=== PATIENT | female | born 1965 | race Caucasian/White ===

== ENCOUNTER 2024-07-14 01:15 | Emergency (ER) | payer OTHER, SELFPAY ==
[2024-07-14 01:32] VITALS: BP 130/65; PULSE 107; RESP 18; TEMP 36.9; O2SAT 95; BMI 26.8
--- NOTE | 2024-07-14 01:38 | ED.GENADULT ---
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 She thinks that she must of had a breakout related to an [place] wool sweater that she was wearing. Has had rash started and then increasing pain at the back of her head/neck now 2 days. Has noted some lesions also on the left side of her head. Has not frankly seen blisters. 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 Has not been able to brush her hair due to the pain. She is wondering if I might be able to pooja something. No fever measured. Related Data Home Medications ?Medication ?Instructions ?Recorded ?Confirmed No Known Home Medications 07/14/24 07/14/24 Allergies Allergy/AdvReac Type Severity Reaction Status Date / Time sulfamethoxazole (From Allergy Rash Verified 07/14/24 01:32 Sept) trimethoprim (From Decra) Allergy Rash Verified 07/14/24 01:32 Review of Systems Status of ROS: Reports: 6 or more systems reviewed and unremarkable except as noted in History and below Exam Narrative: Exam Narrative: Pleasant. Calm. Transitions without difficulty but I think is trying to control degree of pain she is experiencing at this time. Skin is warm and dry. Above the occipital insertion on her head more left of midline is the largest swelling about 4 cm in maximal diameter. Mild calor and moderate erythema sub cm scab somewhat centrally. There might be some whitish spots of pointing. There is induration but no fluctuance. A few smaller similar lesions scattered at the left scalp. No cervical lymphadenopathy. No other lesions appreciated skin. Heart is in elevated rate. She is breathing easily. I did place ultrasound on the posterior lesion. I think there is a small collection of fluid Const: Documenting provider has reviewed patient's vital signs: yes Course Vital Signs Vital signs: Initial Vital Signs Temperature 98.5 F 07/14/24 01:32 Temperature Source Temporal Artery Scan 07/14/24 01:32 Pulse Rate 107 H 07/14/24 01:32 Respiratory Rate 18 07/14/24 01:32 Blood Pressure 130/65 07/14/24 01:32 Blood Pressure Mean 86 07/14/24 01:32 Blood Pressure Position Sitting 07/14/24 01:32 Pulse Oximetry 95 07/14/24 01:32 Oxygen Delivery Method Room Air 07/14/24 01:32 Vital Signs Temperature 98.5 F 07/14/24 01:32 Pulse Rate 107 H 07/14/24 01:32 Respiratory Rate 18 07/14/24 01:32 Blood Pressure 130/65 07/14/24 01:32 Pulse Oximetry 95 07/14/24 01:32 Oxygen Delivery Method Room Air 07/14/24 01:32 Temperature 98.5 F 07/14/24 01:32 Pulse Rate 107 H 07/14/24 01:32 Respiratory Rate 18 07/14/24 01:32 Blood Pressure 130/65 07/14/24 01:32 Pulse Oximetry 95 07/14/24 01:32 Oxygen Delivery Method Room Air 07/14/24 01:32 Medical Decision Making MDM Narrative Medical decision making narrative: I did discuss anesthetic injection before procedure but Ms. Hamilton deferred. Cleansing the area with Betadine then lanced with an 18 gauge. Did not see enough of fluid collection or fluctuance I think to do larger I and D. Not able to withdraw any fluid in this manner but with some pressure which definitely causes some pain, able to express pea sized amount of purulence. This is collected for wound culture Does have cellulitic change on the skin. The would benefit from antibiotics at this point. Would like to make sure there is some MRSA coverage. See patient discharge plan for further discussion I would soak affected areas if possible couple of times daily over the next few days in warm soapy or warm Epsom salt water. Watch for fever, marked increase in swelling, redness or pain. Prescribing doxycycline his antibiotic from [facility] as well as [place] as discussed. Can take up to 800 mg of ibuprofen or up to 1000 mg of acetaminophen per dose. Alternative to the ibuprofen might be up to 500 mg of naproxen 2 times daily. Keep in mind that each tablet of [place] contains 325 mg of acetaminophen. A wound culture will be pending here. Medical Records Medical records reviewed: Yes I reviewed the patient's medical records Discharge Plan Discharge Clinical Impression: Bacterial skin infection Patient Disposition: Home, Self-Care Condition: Stable Additional Instructions: I would soak affected areas if possible couple of times daily over the next few days in warm soapy or warm Epsom salt water. Watch for fever, marked increase in swelling, redness or pain. Prescribing doxycycline his antibiotic from [facility] as well as [place] as discussed. Can take up to 800 mg of ibuprofen or up to 1000 mg of acetaminophen per dose. Alternative to the ibuprofen might be up to 500 mg of naproxen 2 times daily. Keep in mind that each tablet of [place] contains 325 mg of acetaminophen. A wound culture will be pending here. Prescriptions: No Action No Known Home Medications Follow Up/Referrals: Provider,Not a Local [Primary Care Provider] - Stand Alone Forms: stickapps Info Instructions
--- OUTSIDE RECORDS SUMMARY | 2024-07-14 02:06 | XMS_ITS | Encounter Summary ---
Author Organization [facility] Address [address] [place] [address] Care Team Providers Care Tube Trailer Filler Name Role Phone Debbie Mckay MD Primary Care Provider [phone] Encounter Details Date Type Department Care Team (Late st Contact Info) Description 10/22/2011 Emergency Room External to [facility], Provider TOOTHACHE AND BILATERAL FLANK PAIN Social History Tobacco Use Types Packs/Day Years Used Date Smoking Tobacco: Former Cigarettes Q uit: 09/08/2002 Smokeless Tobacco: Never Alcohol Use Standard Drinks/Week Comments Yes 0 (1 standard drink = 0.6 oz pur e alcohol) occ Comments No Sex and Gender Information Value Date Recorded Sex Assigned at Not on file Legal Sex Female 6:46 AM CDT Gender Identity Not on file Sexual Orientation Not on file documented as of this encounter Progress Notes * [facility], Provider - 10/22/2011 12:00 AM CDT documented in this encounter Plan of Treatment Not on file documented as of this encounter Visit Diagnoses Not on filedocumented in this encounter Care Teams Tube Trailer Filler Relationship Specialty Start Date End Date Debbie Mckay MD [address] [place] [address] PCP - General Family Practice 05/11/22 documented as of this encounter
--- OUTSIDE RECORDS SUMMARY | 2024-07-14 02:07 | XMS_ITS | Encounter Summary ---
[facility] Address [address] [place] [address] Care Team Providers Care Planner Name Role Phone Debbie Mckay MD Primary Care Provider Encounter Details Date Type Department Care Team (Late st Contact Info) Description 02/07/2012 Consent for Procedure/Treatme nt [facility] Department INFORMED CONSENT RECORD Social History Tobacco Use Types Packs/Day Years Used Date Smoking Tobacco: Former Cigarettes 3 10 0 09/08/1992 - 09/08/2002 Smokeless Tobacco: Never Alcohol Use Standard Drinks/Week Comments Yes 0 (1 standard drink = 0.6 oz pur e alcohol) occ Comments No Sex and Gender Information Value Date Recorded Sex Assigned at Not on file Legal Sex Female 6:46 AM CDT Gender Identity Not on file Sexual Orientation Not on file Occupation Industry Job Start Date Job End Date Student Not on file Not on file Not on file documented as of this encounter Progress Notes * [facility], PROVIDER - 02/07/2012 12:00 AM CST RN documented in this encounter Plan of Treatment Not on file documented as of this encounter Visit Diagnoses Not on filedocumented in this encounter Care Teams Planner Relationship Specialty Start Date End Date Debbie Mckay MD [address] [place] [address] PCP - General Family Practice 05/11/22 documented as of this encounter
--- OUTSIDE RECORDS SUMMARY | 2024-07-14 02:07 | XMS_ITS | Clinical Summary ---
Author Organization [facility] [employer] [facility] Address [address] [address] Phone Care Team Providers Care Director Of Sports Performance Name Role Phone Unavailable Primary Care Provider Unavailabl e Allergies Active Allergy Reactions Criticality Noted Date Comments Meperidine Nausea and Vomiting 10/04/2018 Sulfa Drugs Nausea and Vomiting 10/04/2018 Medications aspirin 81 MG chewable tablet Chew and swallow 1 Tab one time a day. Take with food. 90 Tab 3 10/06/2018 5:39 PM CDT 10/07/2018 Active atorvaSTATin (LIPITOR) 80 MG tablet Take 1 Tab by mouth with supper. 90 Tab 3 10/06/2018 5:39 PM CDT 10/06/2018 Active clopidogrel (PLAVIX) 75 MG tablet Take 1 Tab by mouth one time a day. No missed doses. Take until 10/06/19. 90 Tab 3 10/06/2018 5:39 PM CDT 10/07/2018 Active metoprolol tartrate (LOPRESSOR) 25 MG tablet Take 1 Tab by mouth two times a day. 90 Tab 6 10/06/2018 5:39 PM CDT 10/06/2018 Active nitroglycerin (NITROSTAT) 0.[address] 1 Tab under the tongue every five minutes as needed for Chest pain. Do not crush; maximum of 3 doses in 15 minutes. 25 Tab 5 10/06/2018 5:39 PM CDT 10/06/2018 Active Active Problems Problem Noted Date Diagnosed Date NSTEMI (non-ST elevated myocardial infarction) 0 10/05/2018 Type 2 diabetes mellitus with diabetic neuropath y 10/05/2018 Surgical History Surgery Date Site/Laterality Comments CARDIAC CATHETERIZATION 10/05/2018 N/A Procedure: LHC, CORONARY ANGIOGRAPHY; Surgeon: Lynsey Taylor MD; Location: [facility] Medical devices from this surgery are in the Medical Devices section. CARDIAC CATHETERIZATION 10/05/2018 N/A Procedure: PCI - Coronary; Surgeon: Lynsey Taylor MD; Location: [facility] Medical devices from this surgery are in the Medical Devices section. Social History Tobacco Use Types Packs/Day Years Used Date Smoking Tobacco: Former Cigarettes Smokeless Tobacco: Never Comments:Quit 2002 Alcohol Use Standard Drinks/Week Comments Yes 0 (1 standard drink = 0.6 oz pur e alcohol) 4 per year AUDIT-C Answer Date Recorded Frequency of Alcohol Consumption Monthly or less 10/05/2018 Average Number of Drinks Not on file 019 Frequency of Binge Drinking Not on file 07/2018 Comments No Sex and Gender Information Value Date Recorded Sex Assigned at Female 10/05/2018 1:34 AM CDT Legal Sex Female 10:13 PM CDT Gender Identity Female 10/05/2018 1:34 AM CDT Sexual Orientation Not on file Obstetrics History Last Filed Vital Signs Vital Sign Reading Time Taken Comments Blood Pressure 127/81 10/06/2018 10:06 AM CDT Pulse 88 10/06/2018 10:06 AM CDT Temperature 37.1 C (98.7 F) 10/06/2018 8:17 AM CDT Respiratory Rate 16 10/06/2018 8:17 AM CDT Oxygen Saturation 98% 10/06/2018 10:06 AM CDT Inhaled Oxygen Concentration - - Weight 83.5 kg (184 lb) 10/06/2018 6:28 AM CDT Height 170.2 cm (5' 7) 10/05/2018 1:44 AM CDT Body Mass Index 28.82 10/05/2018 1:44 AM CDT Plan of Treatment Not on file Medical Devices Implanted Type Area Religious Assistant Device Identifier Shelf Expiration Date Model / Serial / Lot Stent Synergy Mr 2.50mm X 20mm [id number] - [id number] Implanted:Qty : 1 on 10/05/2018 by Lynsey Taylor MD at [facility] Stent NANI N/A: Heart [employer] [id number] 02/27/2020 [id number] / NA / [id number] [place] [place] [address] [facility] Address: [facility] [address] [place] [address] Advance Directives For more information, please contact: [phone] * Full Code (Latest Code Status on File) Date Activated Date Inactivated Comments 10/05/2018 11:23 AM 10/06/2018 9:42 PM * Full Code Date Activated Date Inactivated Comments 10/05/2018 1:27 AM 10/05/2018 11:23 AM
--- OUTSIDE RECORDS SUMMARY | 2024-07-14 02:07 | XMS_ITS | Encounter Summary ---
Author Organization [facility] Address [address] [place] [address] Care Team Providers Care Icer Hand Name Role Phone Debbie Mckay MD Primary Care Provider [phone] Encounter Details Date Type Department Care Team (Late st Contact Info) Description 12/23/2011 Scanned History External to Transferred Record, Provider [facility] Social History Tobacco Use Types Packs/Day Years [...] as of this encounter Progress Notes * Transferred Record, Provider - 12/23/2011 12:00 AM CDT [employer] documented in this encounter Plan of Treatment Not on file documented as of this encounter Visit Diagnoses Not on filedocumented in this encounter Care Teams Icer Hand Relationship Specialty Start Date End Date Debbie Mckay MD [address] [place] [address] PCP - General Family Practice 05/11/22 documented as of this encounter
--- OUTSIDE RECORDS SUMMARY | 2024-07-14 02:07 | XMS_ITS | Encounter Summary ---
Author Organization Counts include 234 beds at the [facility] Address [address], [place] [address] Care Team Providers Care Brewing Director Name Role Phone Debbie Mckay MD Primary Care Provider [phone] Encounter Details Date Type Department Care Team (Late st Contact Info) Description 10/29/2013 Emergency Room External to [facility], Provider CHEST PAIN SHORTNESS OF BREAST Social History Tobacco Use Types Packs/Day Years Used Date Smoking Tobacco: Former Cigarettes 3 10 0 09/08/1992 - 09/08/2002 Smokeless Tobacco: Never Alcohol Use Standard Drinks/Week Comments Yes 0 (1 standard drink = 0.6 oz pur e alcohol) a drink every couple months Comments No Sex and Gender Information Value Date Recorded Sex Assigned at Not on file Legal Sex Female 6:46 AM CDT Gender Identity Not on file Sexual Orientation Not on file Occupation Industry Job Start Date Job End Date Student Not on file Not on file Not on file documented as of this encounter Plan of Treatment Not on file documented as of this encounter Visit Diagnoses Not on filedocumented in this encounter Care Teams Brewing Director Relationship Specialty Start Date End Date Debbie Mckay MD [address] [place] [address] PCP - General Family Practice 05/11/22 documented as of this encounter
--- OUTSIDE RECORDS SUMMARY | 2024-07-14 02:07 | XMS_ITS | Encounter Summary ---
Author Organization [facility] Address [address] [address] Care Team Providers Care Mainframe Programmer Name Role Phone Debbie Mckay MD Primary Care Provider [phone] Encounter Details Date Type Department Care Team (Late st Contact Info) Description 01/12/2012 [facility] [address] [place] [address]. [place] [address] Henri Chan MD [address] [place] [address] PATIENT MEDICAL HISTORY Social History Tobacco Use Types Packs/Day Years [...] as of this encounter Progress Notes * Henri Chan MD - 01/12/2012 12:00 AM CDT documented in this encounter Plan of Treatment Not on file documented as of this encounter Visit Diagnoses Not on filedocumented in this encounter Care Teams Mainframe Programmer Relationship Specialty Start Date End Date Debbie Mckay MD [address] [place] [address] PCP - General Family Practice 05/11/22 documented as of this encounter
--- OUTSIDE RECORDS SUMMARY | 2024-07-14 02:07 | XMS_ITS | Encounter Summary ---
[facility] Address [address] [place] [address] Care Team Providers Care Lab Coordinator Name Role Phone Debbie Mckay MD Primary Care Provider [phone] Encounter Details Date Type Department Care Team (Late st Contact Info) Description 10/29/2013 Outside Hospital External to [facility], Provider CARDIO CONSUT Social History Tobacco Use Types Packs/Day Years [...] on filedocumented in this encounter Care Teams Lab Coordinator Relationship Specialty Start Date End Date Debbie Mckay MD [address] [place] [place] [address] PCP - General Family Practice 05/11/22 documented as of this encounter
--- OUTSIDE RECORDS SUMMARY | 2024-07-14 02:07 | XMS_ITS | Encounter Summary ---
Author Organization [facility] Address [address] [address] Care Team Providers Care Intake Nurse Name Role Phone Debbie Mkcay MD Primary Care Provider [phone] Encounter Details Date Type Department Care Team (Late st Contact Info) Description 12/31/2016 Correspondence [address] [place], [place] [id number] Pastor Zamarripa MD [address] [place], [place] [id number] MEDICATION ASSESSMENT Social History Tobacco Use Types Packs/Day Years [...] on filedocumented in this encounter Care Teams Intake Nurse Relationship Specialty Start Date End Date Debbie Mckay MD [address] [place], [place] [address] PCP - General Family Practice 05/11/22 documented as of this encounter
--- OUTSIDE RECORDS SUMMARY | 2024-07-14 02:07 | XMS_ITS | Encounter Summary ---
Author Organization [facility] Address [address] [place] [address] Care Team Providers Care Airways Operations Specialist Name Role Phone Debbie Mckay MD Primary Care Provider Encounter Details Date Type Department Care Team (Late st Contact Info) Description 11/29/2011 Emergency Room External to [facility], Provider BASK PAIN FLANK PAIN Social History Tobacco Use Types [...] as of this encounter Progress Notes * [facility], Provider - 11/29/2011 12:00 AM CDT documented in this encounter Plan of Treatment Not on file documented as of this encounter Visit Diagnoses Not on filedocumented in this encounter Care Teams Airways Operations Specialist Relationship Specialty Start Date End Date Debbei Mckay MD [address] [place] [address] PCP - General Family Practice 05/11/22 documented as of this encounter
--- OUTSIDE RECORDS SUMMARY | 2024-07-14 02:07 | XMS_ITS | Encounter Summary ---
Author Organization [facility] Address [address] [place] [address] Care Team Providers Care Braided Rug Maker Name Role Phone Debbie Mckay MD Primary Care Provider [phone] Encounter Details Date Type Department Care Team (Late st Contact Info) Description 10/30/2013 Outside Hospital External to [facility], Provider DISCHARGE SUMMARY Social History Tobacco Use Types Packs/Day Years [...] on filedocumented in this encounter Care Teams Braided Rug Maker Relationship Specialty Start Date End Date Debbie Mckay MD [address] [place] [address] PCP - General Family Practice 05/11/22 documented as of this encounter
--- OUTSIDE RECORDS SUMMARY | 2024-07-14 02:07 | XMS_ITS | Encounter Summary ---
Author Organization [facility] Address [address] [place] [address] Care Team Providers Care Green End Department Supervisor Name Role Phone Debbie Mckay MD Primary Care Provider [phone] Encounter Details Date Type Department Care Team (Late st Contact Info) Description 02/07/2014 Emergency Room External to [facility] ABDOMINAL PAIN Social History Tobacco Use Types Packs/Day [...] on filedocumented in this encounter Care Teams Green End Department Supervisor Relationship Specialty Start Date End Date Debbie Mckay MD [address] [place] [address] PCP - General Family Practice 05/11/22 documented as of this encounter
--- OUTSIDE RECORDS SUMMARY | 2024-07-14 02:07 | XMS_ITS | Encounter Summary ---
Author Organization [facility] Address [address], [place] [address] Care Team Providers Care Commercial Energy Rater Name Role Phone Debbie Mckay MD Primary Care Provider [phone] Encounter Details Date Type Department Care Team (Late st Contact Info) Description 02/02/2012 Consent for Procedure/Treatme nt [facility] [address] [place] [address]. [place] [address] Henri Chan MD [address] [place] [address] CONSENT FOR PROCEDURE Social History Tobacco Use Types Packs/Day Years [...] Progress Notes * Henri Chan MD - 02/02/2012 12:00 AM CDT NA ATTENDANT documented in this encounter Plan of Treatment Not on file documented as of this encounter Visit Diagnoses Not on filedocumented in this encounter Care Teams Commercial Energy Rater Relationship Specialty Start Date End Date Debbie Mckay MD [address] [place] [address] PCP - General Family Practice 05/11/22 documented as of this encounter
--- OUTSIDE RECORDS SUMMARY | 2024-07-14 02:07 | XMS_ITS | Encounter Summary ---
Author Organization [facility] Address [address] [place] [address] Care Team Providers Care Human Resources Assistant Name Role Phone Debbie Mckay MD Primary Care Provider [phone] Encounter Details Date Type Department Care Team (Late st Contact Info) Description 01/09/2014 Consent for Procedure/Treatme nt [facility] Department INFORMED CONSENT RECORD Social History Tobacco [...] on filedocumented in this encounter Care Teams Human Resources Assistant Relationship Specialty Start Date End Date Debbie Mckya MD [address] [place] [address] PCP - General Family Practice 05/11/22 documented as of this encounter
--- OUTSIDE RECORDS SUMMARY | 2024-07-14 02:07 | XMS_ITS | Clinical Summary ---
Author Organization [facility] Address [address] [address] Care Team Providers Care Final Tester Name Role Phone Debbie Mckay MD Primary Care Provider [phone] Source Comments You are receiving this document as you are listed as the primary care provider,follow-up provider, or the patient has been referred to you for consultation.This is in compliance with the Medicare and[facility] EHR Incentive Program,which states Providers who transition their patient to another setting of careor provider of care or refers their patient to another provider of care shouldprovide summary care record for each transition of care or referral. [facility] Allergies Active Allergy Reactions Criticality Noted Date Comments Dulaglutide Dizziness 05/18/202205/18: Patient reports significant dizziness and inability to drive while taking Hydrocodone-Acetaminop hen Other, see comments 04/11/2018 Severe fatigue- I will never take Vicodin again in my life - 05/27/21 Hydromorphone Gastrointestinal 11/02/2013 Latex Rash Low 05/26/2021 Blisters Liraglutide Other, see comments 08/03/2013 Difficulty breathing Meperidine Nausea And Vomiting 10/04/2018 Propylene Glycol Other, see comments High 04/11/2020 Made her eyes bleed- Vascular damage in eyes Sulfa Antibiotics Gastrointestinal 06/08/2011 Tramadol Other, see comments 12/10/2011 vomit Medications * This document contains information received from the source organization and may not represent a complete record from that organization. TRUETEST TEST strips TEST TWO TIMES A DAY OR USE DIRECTED. 100 Each 95 013 Active aspirin 81 MG chewable tablet Chew and swallow 1 Tablet (81 mg) by mouth daily. Active omega-3 fatty acids (FISH OIL) 1000 MG capsule Take 2 Capsules (2,000 mg) by mouth daily. Active metFORMIN (GLUCOPHAGE) 1000 MG tabletIndicatio ns:Type 2 diabetes mellitus with other specified complication, with long-term current use of insulin (HRC) Takes 2 tablets a day 180 Tablet 1 023 Active insulin pen needle (B-D UF III MINI PEN NEEDLES) 31G X 5 MMIndications:T ype 2 diabetes mellitus with other specified complication, with long-term current use of insulin (HRC) daily. 100 Each 11 023 Active Additional Information Patient not taking.Reported on 07/27/2022 insulin glargine (LANTUS SOLOSTAR) 100 UNIT/ML penIndications: Type 2 diabetes mellitus with other specified complication, with long-term current use of insulin (HRC) Inject 6 Units subcutaneously two times a day. 10 mL 3 023 Active Additional Information Patient not taking.Reported on 07/27/2022 lisinopril (ZESTRIL) 5 MG tabletIndicatio ns:Essential hypertension (HRC) Take 1 Tablet (5 mg) by mouth daily. 90 Tablet 3 023 Active lisinopril (ZESTRIL) 5 MG tablet Take 1 Tablet (5 mg) by mouth. Active MOUNJARO 15 MG/0.5ML injection penIndications: Type 2 diabetes mellitus with diabetic neuropathy, with long-term current use of insulin (HRC) inject 15mg under the skin once a week 2 mL 024 Active tirzepatide (MOUNJARO) 2.5 MG/0.5ML injection penIndications: Type 2 diabetes mellitus without complication, without long-term current use of insulin (HRC) Inject 2.5 mg subcutaneously once a week. 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 Need to check if patient had follow up testing/Pap. Immunizations Immunization Administration Dates Next Due Flu Vac (3+ yrs) 01/10/2014, 2(Deferred: Patient Refused) HepB Adult (Engerix-B, 20+ y rs, 3 dose series) 10/02/1990,05/05/1990,04/04/1990 Influenza IIV4 (Quadrivalent ) 0.5mL (89764) 01/10/2014 PPSV23 (Pneumovax) 02/08/2012,03/30/2011 TB Test - Historical 02/22/2011 Tdap 02/15/2011 Family History Medical History Relation Name Comments Alcohol/Drug Abuse Father Cataract Father Depression Father Diabetes, Type II Father Hyperlipidemia Father Hypertension Father Osteoporosis Father Alcohol/Drug Abuse Mother Bipolar Disorder Mother Cancer, Ovary Mother diagnosed in h er 50s Cataract Mother Depression Mother Schizophrenia Mother Down Syndrome Brother Heart Attack Brother Hypertension Brother Anesthesia Reaction Maternal Grandmother Cancer, Ovary Maternal Grandmother Macular Degeneration Paternal Uncle Cancer, Other Sister 2 Uterine Relation Name Status Comments Father (Age 75) strokes, h eart attack, alcoholism Mother (Age 68) alcoholism , uterine/ovarian cancer Brother 7 brothers Maternal Grandmother Paternal Uncle Sister 1 2 sister Sister 2 Social History Tobacco Use Types Packs/Day Years Used Date Smoking Tobacco: Former Cigarettes 3 10 0 09/08/1992 - 09/08/2002 Passive Smoke Exposure: Past Smokeless Tobacco: Never Tobacco Cessation:Counseling Given: Not Answered Alcohol Use Standard Drinks/Week Comments Yes 0 (1 standard drink = 0.6 oz pur e alcohol) a drink every couple months PHQ-2 Answer Date Recorded PHQ-2 Score 0 05/07/2022 Comments No Sex and Gender Information Value Date Recorded Sex Assigned at Not on file Legal Sex Female 6:46 AM CDT Gender Identity Not on file Sexual Orientation Not on file Occupation Industry Job Start Date Job End Date Student Not on file Not on file Not on file Last Filed Vital Signs Vital Sign Reading Time Taken Comments Blood Pressure 139/78 06/18/2022 8:45 AM CDT Pulse 75 06/18/2022 8:45 AM CDT Temperature 36.6 C (97.9 F) 04/16/2022 9:33 AM INSURANCE ADJUSTER Respiratory Rate 20 04/16/2022 9:33 AM INSURANCE ADJUSTER Oxygen Saturation 98% 04/16/2022 9:33 AM INSURANCE ADJUSTER Inhaled Oxygen Concentration - - Weight 83 kg (183 lb) 05/07/2022 10:13 AM INSURANCE ADJUSTER Height 168.3 cm (5' 6.25) 06/18/2022 8:45 AM CD T Body Mass Index 29.31 05/07/2022 10:13 AM INSURANCE ADJUSTER Plan of Treatment Health Maintenance Due Date Last Done Comments Mammogram 1964 Pneumococcal 50+ Yrs (2 of 2 - PCV) 02/07/2013 02/08/2012, 03/30/2011 Zoster/Shingles (1 of 2) 2014 Diabetes: Eye Exam 11/12/2014 11/12/2013, 0 11/12/2013, 11/12/2013, Additional history exists DTaP/Tdap/Td (2 - Tdap) 02/15/2021 02/15/2011 Adult Preventive Visit 05/07/2023 05/07/2022, 2011 Diabetes: Creatinine 05/07/2023 05/07/2022, 01/10/2014, 01/09/2014, Additional history exists Diabetes: Foot Exam 05/07/2023 05/07/2022, 05/07/2022, 11/02/2013, Additional history exists Diabetes: Urine Microalbumin 07/28/2023, 05/07/2022, 05/18/2013, Additional history exists Diabetes: HGBA1C 08/11/2023 02/10/2023, , 05/07/2022, Additional history exists COVID-19 Vaccine ( season) 2023 Influenza (#1) 2023 01/10/2014, 01/10/2014 Colonoscopy 04/04/2024 04/04/2014, 10/2011, 12/10/2011 Diabetes: Lipid Panel 05/07/2027 05/07/2022 , 04/29/2014, 05/18/2013, Additional history exists HepB Completed 10/02/1990, 04/1990, 04/04/1990 HIV Screening (Preventive Services) Completed 10/23/2011 Hep C Screening (Preventive Services) Completed 05/07/2022 HepA Aged Out No longer eligi ble based on patient's age to complete this topic Hib Aged Out No longer eligi ble based on patient's age to complete this topic IPV (Polio) Aged Out No longer eligi ble based on patient's age to complete this topic MCV4 Aged Out No longer eligi ble based on patient's age to complete this topic Meningococcal B Aged Out No longer el igible based on patient's age to complete this topic Medical Devices Implanted Type Area Public Services Librarian Device Identifier Shelf Expiration Date Model / Serial / Lot Stent [id number] Polaris Ultra - [id number] Implanted:Qty: 1 on 02/07/2012 by Henri Chan MD at [facility] DEVICE Left: [employer] [place] [employer]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 02/07/2012 [id number] / / [id number] Procedures Procedure Name Priority Date/Time Associated Diagnosis Comments HGB A1C Routine 02/10/2023 10:15 AM INSURANCE ADJUSTER Diabetic peripheral neuropathy (HRC) ALBUMIN/CREAT RATIO Routine 07/27/2022 1 0:52 AM CDT Type 2 diabetes mellitus with diabetic neuropathy, with long-term current use of insulin (HRC) HEPATITIS C ANTIBODY, WITH REFLEX Routine 05/07/2022 11:26 AM INSURANCE ADJUSTER Need for hepatitis C screening test BASIC METABOLIC PANEL Routine 05/07/2022 11:26 AM INSURANCE ADJUSTER Type 2 diabetes mellitus with other specified complication, with long-term current use of insulin (HRC) LIPID PANEL & DIRECT LDL (IF NEEDED) Routine 05/07/2022 11:26 AM INSURANCE ADJUSTER Type 2 diabetes mellitus with other specified complication, with long-term current use of insulin (HRC) COLONOSCOPY Routine 12/10/2011 9:15 AM CDT Left lower quadrant pain HIV, POINT OF CARE STAT 10/23/2011 2: 16 AM CDT from Last 3 Months or Most Recently Relevant to Health Maintenance Results * (ABNORMAL) Hgb A1C (02/10/2023 10:15 AM INSURANCE ADJUSTER) Hemoglobin A1C (Rapid) 6.0(H) <=5.6 % 02/10/2023 10:39 AM [facility] Estimated Average Glucose (Calc) 126 < 117 mg/dL 02/10/2023 10:39 AM [facility] Comment:Estimated average gl ucose (eAG) converts A1c into glucose units (mg/dL) and estimates average glucose over the past approximately 3 months. The eAG reference interval (<117 mg/dL) corresponds to an A1c of <5.7%. Blood Venipuncture / Unknown 02/10/2023 10:15 AM INSURANCE ADJUSTER 02/10/2023 10:15 AM [facility] - 02/10/2023 10:39 AM INSURANCE ADJUSTER For patients not previously diagnosed with diabetes: 5.7-6.4%: Increased risk for diabetes 6.5% and greater: Diagnostic for diabetes For patients diagnosed with diabetes: <8.0%: Goal of therapy for ages 18-75 Clinicians may recommend a higher or lower goal for specific individuals. The test method used for this Hemoglobin A1c result can experience interference from elevated hemoglobin and other hemoglobin variants. In patients with results that do not correlate clinically, contact the lab for further direction. Debbie Mckay MD LAB_1 Final Result Performing Organization Address [facility]/ZIP Co de Phone Number [facility] [address] [place] [address], [facility] [place] [phone] * (ABNORMAL) Albumin/Creatinine Ratio,Random Urine (07/27/2022 10:52 AM CDT) Albumin/Creati nine Ratio, Urine, Random 238(H) <30 mg/g 07/27/2022 3:57 PM CDT [facility] Albumin, Urine, Random 240.5 mg/L 07/27/2022 3:57 PM CDT [facility] Creatinine, Urine, Random 101 >20 mg/dL mg/dL 07/27/2022 3:57 PM CDT [facility] Urine Non-blood Collection / Unknown 07/27/2022 10:52 AM CDT 07/27/2022 10:52 AM CDT Debbie Mckay MD LAB_1 Final Result Performing Organization Address [facility] de Phone Number [facility] [address] * (ABNORMAL) Lipid Panel and Direct LDL(If Needed) (05/07/2022 11:26 AM INSURANCE ADJUSTER) Cholesterol 213(H) 0 - 199 mg/dL 05/07/2022 6:54 PM INSURANCE ADJUSTER [facility] Triglyceride 313(H) <=149 mg/dL 05/07/2022 6:54 PM INSURANCE ADJUSTER [facility] HDL Cholesterol 30(L) >=40 mg/dL 05/07/2022 6:54 PM INSURANCE ADJUSTER [facility] LDL, Calculated 120 <130 mg/dL 05/07/2022 6:54 PM INSURANCE ADJUSTER [facility] Non HDL Chol, Calculated 183(H) <=159 mg/dL 05/07/2022 6:54 PM INSURANCE ADJUSTER [facility] Cholesterol/HDL Ratio 7.1 05/07/2022 6:54 PM INSURANCE ADJUSTER [facility] Hours Fasting Unknown 05/07/2022 6:54 PM [facility] (PN) Blood Venipuncture / Unknown 05/07/2022 11:26 AM INSURANCE ADJUSTER 05/07/2022 11:26 AM INSURANCE ADJUSTER us Debbie Mckay MD LAB_1 Final Result [facility] [address] [place] [address], [facility] (PN) [address] [place] [address], [facility] [place] [phone] * (ABNORMAL) Basic Metabolic Panel (05/07/2022 11:26 AM INSURANCE ADJUSTER) Sodium 134(L) 136 - 145 mmol/L 05/07/2022 6:54 PM INSURANCE ADJUSTER [facility] Potassium 4.7 3.5 - 5.1 mmol/L 05/07/2022 6:54 PM INSURANCE ADJUSTER [facility] Chloride 107 98 - 109 mmol/L 05/07/2022 6:54 PM INSURANCE ADJUSTER [facility] CO2 21 20 - 29 mmol/L 05/07/2022 6:54 PM INSURANCE ADJUSTER [facility] Anion Gap 6(L) 7 - 16 mmol/L 05/07/2022 6:54 PM INSURANCE ADJUSTER [facility] Calcium 9.5 8.4 - 10.4 mg/dL 05/07/2022 6:54 PM [facility] BUN 44(H) 7 - 26 mg/dL 05/07/2022 6:54 PM INSURANCE ADJUSTER [facility] Creatinine 0.95 0.55 - 1.02 mg/dL 05/07/2022 6:54 PM INSURANCE ADJUSTER [facility] Glucose 287(H) 70 - 100 mg/dL 05/07/2022 6:54 PM [facility] Comment:The given reference range is for the fasting state. Non-fasting reference range for glucose is 70 - 180 mg/dL. Hours Fasting Unknown 05/07/2022 6:54 PM INSURANCE ADJUSTER [facility] (PN) GFR, Estimated >60 >60 mL/min/1.7 3m2 05/07/2022 6:54 PM INSURANCE ADJUSTER [facility] Blood Venipuncture / Unknown 05/07/2022 11:26 AM INSURANCE ADJUSTER 05/07/2022 11:26 AM INSURANCE ADJUSTER Debbie Mckay MD LAB_1 Final Result Performing Organization Address [facility] de Phone Number [facility] [address] [place], [place] [phone] [place] [address] LABORATORY (PN) [address] [place] [address] [phone] * Hepatitis C Antibody, with Reflex (05/07/2022 11:26 AM INSURANCE ADJUSTER) Hepatitis C Antibody Negative (Non Reactive) Negative (Non Reactive) 05/07/2022 7:27 PM INSURANCE ADJUSTER [facility] Comment:Antibodies to HCV no t detected. Does not exclude the possiblity of exposure to HCV. Blood Venipuncture / Unknown 05/07/2022 11:26 AM INSURANCE ADJUSTER 05/07/2022 11:26 AM INSURANCE ADJUSTER Debbie Mckay MD LAB_1 Final Result Performing Organization Address [facility] Phone Number [facility] [address] [place], [place] [address] * COLONOSCOPY [[id number]] (12/10/2011 9:15 AM CDT) 12/10/2011 9:15 AM CDT Narrative [facility] ([facility]) - 12/10/2011 10:21 AM CDT Indications: Abdominal pain in the left lower quadrant, This is the patient's first colonoscopy Providers: Vini Baker MD, Kristen Nelson RN Referring MD: Pastor Zamarripa MD Medicines: Fentanyl IV 100 mcgs, Versed IV 2 mgs Complications: No immediate complications. Procedure: Pre-Anesthesia Assessment: - See concurrent note for pre-anesthesia assessment. After I obtained informed consent, the scope was passed under direct vision. Prior to sedation, patient identity and procedure was reverified. Throughout the procedure, the patient's blood pressure, pulse, and oxygen saturations were monitored continuously. The PCF H-180AL colonoscope #25 was introduced through the anus and advanced to the terminal ileum, with identification of the appendiceal orifice and IC valve. The colonoscopy was performed without difficulty. The patient tolerated the procedure well. The quality of the bowel preparation was poor and poor due to opaque liquid and solid debris not improving proximally. Repetitive irrigation and aspiration was utilized to achieve a satisfactory exam. Findings: The perianal and digital rectal examinations were normal. A sessile polyp was found at 52 cm proximal to the anus. The polyp was 3 mm in size. The polyp was removed with a hot snare. Resection and retrieval were complete. Estimated blood loss was minimal. Verification of patient identification for the specimen was done by the physician and nurse using the patient's name and date. The exam was otherwise without abnormality on direct and retroflexion views. Impression: - Preparation of the colon was poor. - One 3 mm polyp at 52 cm proximal to the anus. Resected and retrieved. - The examination was otherwise normal on direct and retroflexion views. No source of explanation for pain in the colon. Recommendation: - Findings, plan, and postprocedure precautions discussed with patient. Please call for results if no word in one week. Procedure Code(s): --- Professional --- 03680 Diagnosis Code(s): --- Professional --- 211.3 789.04 CPT (R) 2011 [employer]. All Rights Reserved. The codes documented in this report are preliminary and upon radiology technologist review may be revised to meet current compliance requirements. Attending Participation: MD Vini Valadez MD 12/10/2011 10:20 AM Number of Addenda: 0 Note Initiated On: 12/10/2011 9:15 AM Procedure Note Vini Baker MD - 12/10/2011 Indications: Abdominal pain in the left lower quadrant, This is the patient's first colonoscopy Providers: Vini Baker MD, Kristen Nelson, MARLY Referring MD: Pastor Zamarripa MD Medicines: Fentanyl IV 100 mcgs, Versed IV 2 mgs Complications: No immediate complications. Procedure: Pre-Anesthesia Assessment: - See concurrent note for pre-anesthesiaassessment. After I obtained informed consent, the scope was passed under direct vision. Prior to sedation, patient identity and procedure was reverified. Throughout the procedure, the patient's blood pressure, pulse, and oxygen saturations were monitored continuously. The PCF H-180AL colonoscope #25 was introduced through the anus and advanced to the terminal ileum, with identification of the appendiceal orifice and IC valve. The colonoscopy was performed without difficulty. The patient tolerated the procedure well. The quality of the bowel preparation was poor and poor due to opaque liquid and solid debris not improving proximally. Repetitive irrigation and aspiration was utilized to achieve a satisfactory exam. Findings: The perianal and digital rectal examinations were normal. A sessile polyp was found at 52 cm proximal to the anus. The polyp was 3 mm in size. The polyp was removed with a hot snare. Resection and retrieval were complete. Estimated blood loss was minimal. Verification of patient identification for the specimen was done by the physician and nurse using the patient's name and date. The exam was otherwise without abnormality on direct and retroflexion views. Impression: - Preparation of the colon was poor. - One 3 mm polyp at 52 cm proximal to the anus. Resected and retrieved. - The examination was otherwise normal on direct and retroflexion views. No source of explanation for pain in the colon. Recommendation: - Findings, plan, and postprocedure precautions discussed with patient. Please call for results if no word in one week. Procedure Code(s): --- Professional --- 72616 Diagnosis Code(s): --- Professional --- 211.3 789.04 CPT (R) 2011 [employer]. All Rights Reserved. The codes documented in this report are preliminary and upon radiology technologist review may be revised to meet current compliance requirements. Attending Participation: MD Vini Valadez MD 12/10/2011 10:20 AM Number of Addenda: 0 Note Initiated On: 12/10/2011 9:15 AM us Vini Baker MD DIGESTIVE CARE Final Result [facility] ([facility]) [place], [place] * HIV, POINT OF CARE (10/23/2011 2:16 AM CDT) Rapid HIV Negative (Non Reactive) [facility] 10/23/2011 2:16 AM CDT 10/23/2011 7:26 AM CDT us Elin Grissom MD LAB_1 Final Res ult [address] [address] from Last 3 Months or Most Recently Relevant to Health Maintenance Insurance CARE MNCARE Advance Directives * Full Code (Latest Code Status on File) Date Activated Date Inactivated Comments 01/09/2014 7:20 PM 01/10/2014 2:52 PM * Full Code Date Activated Date Inactivated Comments 01/09/2014 12:33 PM 01/09/2014 7:19 PM * Full Code Date Activated Date Inactivated Comments 02/07/2012 5:24 AM 02/08/2012 1:05 PM Care Teams Final Tester Relationship Specialty Start Date End Date Debbie Mckay MD [address] [place] [address] PCP - General Family Practice 05/11/22
--- OUTSIDE RECORDS SUMMARY | 2024-07-14 02:07 | XMS_ITS | Clinical Summary ---
Author Organization [facility] Address [address] [place] [id number] Care Team Providers Care Magnetic Tape Typewriter Operator Name Role Phone Pcp, No Primary Care Provider Unavailabl e Allergies Active Allergy Reactions Criticality Noted Date Comments Hydromorphone Nausea And Vomiting 10/29/2013 (Ok with morphine) Latex Rash Low 05/26/2021 Blisters Meperidine Nausea And Vomiting 10/04/2018 Phenol *Unknown High 04/11/2020 Propylene Glycol Other - Describe In Comment Field High 04/11/2020 Made her eyes bleed- Vascular damage in eyes Sulfa (Sulfonamide Antibiotics) Vomiting 02/07/2011 Sulfamethoxazole-Trimeth oprim Nausea And Vomiting 05/20/2009 Tramadol Nausea And Vomiting 12/10/2011 vomit Hydrocodone-Acetaminophe n Other - Describe In Comment Field 04/11/2018 Severe fatigue- I will never take Vicodin again in my life - 05/27/21 Liraglutide Anaphylaxis,Diarrhea High 04/11/2020 Made me stop breathing Medications blood-glucose meterIndications:Ty pe 2 diabetes mellitus with both eyes affected by 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 E11.65 NIDDM type II, uncontrolled - Test 2 times/day. Reason: High A1C 1 Each 11/25/19 21 Active lancetsIndications: Type 2 diabetes mellitus with both eyes affected by moderate nonproliferative retinopathy without macular edema, with long-term current use of insulin (HC) Test 2 times per day. 200 Each 3 11/25/19 21 Active nitroglycerin (NITROSTAT) 0.4 mg sublingual tabletIndications:H istory of PR (myocardial infarction) Place 1 Tablet (0.4 mg) under the tongue each time if needed for Chest Pain. 10 Tablet 3 05/21/19 22 Active lisinopriL (PRINIVIL; ZESTRIL) 5 mg tablet Take 5 mg by mouth once daily. Active MILK THISTLE ORAL Take 1 Tablet by mouth once daily. Active Patients Unique Medication From Home Brand: [place]- 1 tablet daily (helps to clear her throat) Active aspirin chewable 81 mg chewable tablet Chew 1 Tablet (81 mg) by mouth every morning. 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 200 Each 3 06/03/19 22 Active atorvastatin (LIPITOR) 80 mg tabletIndications:M ixed hyperlipidemia Take 1 Tablet (80 mg) by mouth once daily with evening meal. 90 tablet. 3 08/21/19 22 Active metoprolol tartrate (LOPRESSOR) 25 mg tabletIndications:A rteriosclerotic heart disease Take 1 Tablet (25 mg) by mouth once daily. 90 Tablet 1 08/21/19 22 Active insulin glargine, U-100, (LANTUS) 100 unit/mL injectionIndication s:Type 2 diabetes mellitus with both eyes affected by moderate nonproliferative retinopathy without macular edema, with long-term current use of insulin (HC) Inject 20 units at breakfast and 20 units at bedtime daily. 30 mL 3 08/21/19 22 Active meclizine (ANTIVERT) 25 mg tabletIndications:N ear syncope,Episodic lightheadedness Take 1 Tablet (25 mg) by mouth every 6 hours if needed for Vertigo. 30 Tablet 09/05/19 22 Active arm brace (Wrist Brace) miscIndications:Par esthesia of hand, bilateral As directed 1 Each. 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 E11.65 NIDDM type II, uncontrolled - Test 2 times/day. 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, with long-term current use of insulin (HC) TAKE 4 TABLETS BY MOUTH ONCE DAILY WITH EVENING MEAL 360 Tablet 02/10/20 22 Active Active Problems Problem Noted Date Diagnosed Date Cataract of both eyes 07/03/2021 Diabetic retinopathy associa gumaro with type 2 diabetes mellitus 07/03/2021 Glaucoma 07/03/2021 History of arthroscopy of left knee 07/03/2021 History of renal calculi 07/03/2021 Obstructive sleep apnea arian gumaro with continuous positive airway pressure (CPAP) 07/03/2021 COVID-19 with comorbid diabetes mellitus 021 Migraine 05/14/2019 Atherosclerosis of coronary artery 05/14/2019 History of coronary artery stent placement 10/02 History of non-ST elevation myocardial infarctio n (NSTEMI) 10/02/2018 Post concussion syndrome 04/11/2018 History of hysterectomy 01/09/2014 Macrodactylia of toes 01/06/2012 Overview (07/03/2021): elongated metatarsal Pes planus 01/06/2012 Diabetic peripheral neuropathy 07/12/2011 Hyperlipidemia with target LDL less than 100 Overview (07/03/2021): ICD 10 Colloid thyroid nodule 04/09/2011 Overview (07/03/2021): FNA 04/09/2011 Benign Colloid Nodule Abnormal finding on Pap smear, ASCUS 02/19/2011 Overview (07/03/2021): colpo 03/10/11, repeat pap in 6 months Hypertension 06/20/2010 Nephrolithiasis 06/20/2010 Peripheral vestibulopathy Facial paresthesia S/P craniotomy History of COVID-19 Resolved Problems Problem Noted Date Diagnosed Date Resolved Date Vertigo 05/14/2019 07/03/2021 Concussion with no loss of consciousness 04/11/2018 07/03/2021 Visual disturbance 04/11/2018 Chest pain 10/29/2013 07/03/2021 Chest pain: possible unstable angina 06/20/2010 07/03/2021 Chest pain, unspecified 05/20/2009 04/0 04/2021 Overview (05/20/2009): 2003; hospitalized and PR ruled out Type 2 diabetes mellitus wit h both eyes affected by moderate nonproliferative retinopathy without macular edema, with long-term current use of insulin 05/20/2009 022 Overview (05/22/2013): Diagnosed in 2002; currently on no meds a system change updated this record. This will not affect patient care or billing. This comment can be deleted. Mixed hyperlipidemia 05/20/2009 022 Overview (05/20/2009): Diagnosed 2002 Immunizations Immunization Administration Dates Next Due Hepatitis B (Adult) 10/02/1990,05/05/1990,1990 Influenza, IIV3 (Age >=3 years) 01/10/2014 Influenza, IIV4 01/10/2014 Pneumococcal Poly,23-Valent (Pneumovax) 02/08/20 12,03/30/2011 Tdap 02/15/2011 Tuberculin (PPD) 02/22/2011 Family History Medical History Relation Name Comments Heart attack Brother 1 Hypertension Brother 1 Down syndrome Brother 6 Diabetes Father Heart Disease Father Stroke Father Cancer Maternal Grandmother ovarian Cancer Mother ovarian cancer, diagnosed in 50s Other Paternal Uncle macular degen eration Relation Name Status Comments Brother 1 Alive Brother 2 Alive Brother 3 Alive Brother 4 Alive Brother 5 Alive Brother 6 Brother 7 Brother 8 Father (Age 75) Maternal Grandmother Mother (Age 50's) ovarian cancer Paternal Uncle Sister 1 Alive Sister 2 Alive Social History Tobacco Use Types Packs/Day Years Used Date Smoking Tobacco: Former Cigarettes Smokeless Tobacco: Former Quit: 09/08/2002 Tobacco Cessation:Counseling Given: No Comments:quit 19 years ago Alcohol Use Standard Drinks/Week Comments Not Currently 0 (1 standard drink = 0.6 oz pur e alcohol) Rarely PHQ-2 Answer Date Recorded PHQ-2 TOTAL SCORE 3 09/24/2020 Social Connections Answer Date Recorded Frequency of Communication with Friends and Fami ly Not on file 08/23/2022 Financial Resource Strain Answer Date R ecorded Difficulty of Paying Living Expenses 3 08/20/2021 Difficulty of Paying Living Expenses Not on file 08/20/2021 Food Insecurity Answer Date Recorded Worried About Running Out of Food in the Last Ye ar 1 08/20/2021 Transportation Needs Answer Date Record ed Lack of Transportation (Medical) 1 08/20/2021 Housing Stability Answer Date Recorded Unable to Pay for Housing in the Last Year 1 08/20/2021 Comments No Sex and Gender Information Value Date Recorded Sex Assigned at Not on file Legal Sex Female 5:25 AM ARMORED CAR MESSENGER Gender Identity Not on file Sexual Orientation Not on file Obstetrics History Para Term AB IAB SAB Ectopic Multiple Livin g Live Births 3 Last Filed Vital Signs Vital Sign Reading Time Taken Comments Blood Pressure 154/82 09/22/2021 8:39 AM CDT Pulse 66 09/22/2021 8:39 AM CDT Temperature 36.7 C (98.1 F) 09/09/2021 12:46 PM CDT Respiratory Rate 16 09/09/2021 12:46 PM CDT Oxygen Saturation 97% 09/22/2021 8:39 AM CDT Inhaled Oxygen Concentration - - Weight 88.5 kg (195 lb) 09/22/2021 8:39 AM CDT Pt reported Height 170.2 cm (5' 7) 09/22/2021 8:39 AM CDT Body Mass Index 30.54 09/22/2021 8:39 AM CDT Plan of Treatment Health Maintenance Due Date Last Done Comments HIV for age 15-65 07/25/1979 Hepatitis C screening for ag e 18-79 1982 Colonoscopy through age 75 2009 Mammogram for age 45-75 05/30/2010 05/30/2009 Pap test for age 21-65 05/20/2012 0, 05/20/2009, 12/01/2004 Pneumococcal series for age 50+ (2 of 2 - PCV) 02/07/2013 02/08/2012, 03/30/2011 Zoster (shingles) series for age 50+ (1 of 2) 2014 Tetanus booster 02/15/2021 02/15/2011 Depression screening for age 12+ 09/26/2021 09/26/2020, 07/16/2020, 07/14/2020, Additional history exists BMI (ht and wt on same day) for age 18+ 09/22/2022 09/22/2021, 06/11/2021, 05/21/2021, Additional history exists COVID-19 vaccine series ( - 2023- season) 2023 Influenza Vaccine (Season Ended) 2024 01/11/20 14, 01/10/2014 Lipids for age 45-75 07/04/2025 07/04/2020, 05/29/2018, 06/21/2010, Additional history exists Tdap Completed 02/15/2011 Medical Devices Implanted Type Area Devulcanizer Head Device Identifier Shelf Expiration Date Model / Serial / Lot Dura Neuro 2x2in Duragen Plusnon-Sut - [id number] Implanted:Qty: 1 on 05/27/2021 by Lan Cordoba MD at [facility] Right: Cranium Integra [employer] Renate 01/02/2024 DP-1022 / / [id number] Screw Neuro 4mm Matrixneuro Slf Drill Titnm - [id number] Implanted:Qty: 8 on 05/27/2021 by Lan Cordoba MD at [facility] Right: Cranium J And J Depuy CMF [id number] 4.01 / / [place] Cover Neuro 24mm Synthes Low Pro Titnm - [id number] Implanted:Qty: 2 on 05/27/2021 by Lan Cordoba MD at [facility] Right: Cranium J [employer] J Depuy CMF [id number] / / Procedures Procedure Name Priority Date/Time Associated Diagnosis Comments LIPID PANEL W REFLEX MEASURED LDL Routine 07/04/2020 10:27 AM CDT Type 2 diabetes mellitus with both eyes affected by moderate nonproliferative retinopathy without macular edema, with long-term current use of insulin (HC) XR MAMMO BILAT SCREEN FFDM (IA) Routine 05/30/2009 7:20 AM ARMORED CAR MESSENGER Other Screening Mammogram TRIMMER HAND THIN PREP PAP SCREEN IMAGED Routine 05/20/2009 1:04 PM ARMORED CAR MESSENGER Screening for Malignant Neoplasm of the Cervix from Last 3 Months or Most Recently Relevant to Health Maintenance Results * (ABNORMAL) LIPID PANEL W REFLEX MEASURED LDL (07/04/2020 10:27 AM CDT) CHOLESTEROL,TOTAL 104 100 - 199 mg/dL 07/04/2020 2:53 PM CDT [facility] TRIGLYCERIDES 101 <150 mg/dL 07/04/2020 2:53 PM CDT [facility] HDL CHOLESTEROL 30(L) >40 mg/dL 2:53 PM CDT [facility] NON-HDL CHOLESTEROL 74 <145 mg/dl 07/04/2020 2:53 PM CDT [facility] CHOL/HDL RATIO 3.47 <4.50 07/04/2020 2:53 PM CDT [facility] LDL CHOLESTEROL 54 <=130 mg/dL 07/04/2020 2:53 PM CDT [facility] PROVIDER ORDERED STATUS RANDOM 07/04/2020 2:53 PM CDT [facility] Blood BLOOD SPECIMEN / Unknown Butterfly / Unknown 07/04/2020 10:27 AM CDT 07/04/2020 10:31 AM CDT us Eliel Jimenez MD CHEMISTRY Final Result [facility] [address] [place] [address], [place] * XR MAMMO BILAT SCREEN FFDM (05/30/2009 7:20 AM ARMORED CAR MESSENGER) MAMMOGRAM ACR 0 Incomplete: Additional imaging evaluation needed Anatomical Region Laterality Modality BREASTS, Breast Left, Breast Right Bilateral Mammography 05/30/2009 7:20 AM ARMORED CAR MESSENGER Narrative 05/30/2009 1:00 PM ARMORED CAR MESSENGER BILATERAL SCREENING MAMMOGRAM CLINICAL HISTORY: Screening baseline study. FINDINGS: The breasts are average density. There is a well-circumscribed, slightly lobulated nodule in the left breast at mid-depth at approximately the 2:00 position. This is just deep to the skin surface and 6 cm from the nipple. This may represent an intramammary lymph node. No areas of architectural distortion or suspicious calcifications. CONCLUSION: ACR 0 Incomplete: Needs additional imaging evaluation. RECOMMENDATION: Ultrasound of the left breast as described. Procedure Note Danis Bone, DO - 05/30/2009 BILATERAL SCREENING MAMMOGRAM CLINICAL HISTORY: Screening baseline study. FINDINGS: The breasts are average density. There is awell-circumscribed, slightly lobulated nodule in the left breast atmid-depth at approximately the 2:00 position. This is just deep to theskin surface and 6 cm from the nipple. This may represent an intramammarylymph node. No areas of architectural distortion or suspiciouscalcifications. CONCLUSION: ACR 0 Incomplete: Needs additional imaging evaluation. RECOMMENDATION: Ultrasound of the left breast as described. us Bharti Alva SNUFF MAKER MAMMO F inal Result * (ABNORMAL) Pap Screening (05/20/2009 1:04 PM ARMORED CAR MESSENGER) CYTOLOGY CYTOPATHOLOGY REPORT [facility] Status: Final Status [id number] CLINICAL INFORMATION Last Date of LMP :05/14/2009 Last Pap Date :12/01/04 Last Pap Result :NIL ABN [place]/Bx Past 5 YRS :None Hormone Usage :None Menstrual Status :Regular Periods [place]/Bx done today :No Additional Information :None given HPV Request :HPV if ASCUS ANCILLARY TESTING :HPV testing ordered. See Separate Report. SPECIMEN SOURCE :Cervical/vagina l ThinPrep Vial, screening SPECIMEN ADEQUACY :Satisfactory for evaluation Endocervical component present. INTERPRETATION/R ESULT Atypical squamous cells of undetermined significance (ASCUS) Cytology 1st Screener :nm Signed by : Daniel Burns M.D. This specimen was screened by the FDA approved ThinPrep Imaging System and manually reviewed. NOTE: The Pap test is a screening technique, not a diagnostic procedure. It is used primarily to screen for squamous cancers and precursor lesions. Published studies have shown that it is subject to both false negative and false positive results. The pap test should not be used as the sole means to diagnose or exclude pre-malignant and malignant lesions. COLLECTED: ACCESSIONED: 05/21/09 SIGNED: 05/27/09 [facility] PAP [place] CODE ASCUS [facility] Cervical/Vaginal (Cervical/Vagina l) 05/20/2009 1:04 PM ARMORED CAR MESSENGER 05/20/2009 1:01 PM ARMORED CAR MESSENGER Bharti Alva NP PATHOLOGY/CYTOLOG Y Final Result [facility] [place]NAL ZIP [id number] [id number] from Last 3 Months or Most Recently Relevant to Health Maintenance Insurance [facility] Advance Directives * Full Code (Latest Code Status on File) Date Activated Date Inactivated Comments 05/27/2021 6:12 AM 05/28/2021 3:16 PM Question Answer Comments Code Status Discussion: Per Existing Order * Full Code Date Activated Date Inactivated Comments 05/14/2019 4:01 PM 05/15/2019 4:26 PM * DNR Date Activated Date Inactivated Comments 10/29/2013 4:21 AM 10/30/2013 8:10 PM DNR status w as discussed at this time. * Full Code Date Activated Date Inactivated Comments 11/16/2011 8:21 AM 11/16/2011 2:17 PM * Full Code Date Activated Date Inactivated Comments 06/21/2010 12:30 AM 06/22/2010 10:50 PM Care Teams Magnetic Tape Typewriter Operator Relationship Specialty Start Date End Date Pcp, No . PCP - General 09/23/23
== END 2024-07-14 02:26 | disposition home or self-care (01) ==
PROVIDERS: Emergency Provider Family Medicine
DX: L08.9 Local infection of the skin and subcutaneous tissue, unspecified (principal); B96.89 Other specified bacterial agents as the cause of diseases classified elsewhere
CPT/HCPCS: 87070; 87186; 99283; 99284